=== PATIENT | male | born 1960 | race African-American/Black ===

== ENCOUNTER 2022-11-29 17:19 | Inpatient (IN) | payer OTHER ==
[2022-11-29 18:03] VITALS: BMI 36.6
[2022-11-29] MEDS ORDERED: cloNIDine HCL 0.1 MG TABLET PO ONE (18:19)
[2022-11-29] MEDS ORDERED: IBUPROFEN 400 MG TABLET (FP) PO PRN (18:27)
[2022-11-29] MEDS ORDERED: ONDANSETRON *ODT* 4 MG TABLET SL PRN (18:27)
[2022-11-29] MEDS ORDERED: MAGNESIUM HYDROX 2400MG/30ML ORAL SUSPENSION 30 ML CUP PO PRN (18:27)
[2022-11-29] MEDS ORDERED: BENZOCAINE/MENTHOL (CHLORASEPTIC ) LOZENGE MM PRN (18:27)
[2022-11-29] MEDS ORDERED: BISMUTH SUBSALICYLATE 524 MG/30 ML PO PRN (18:27)
[2022-11-29] MEDS ORDERED: guaiFENesin 200 MG/10 ML 10 ML UNIT-DOSE CUPS PO PRN (18:27)
[2022-11-29] MEDS ORDERED: POLYETHYLENE GLYCOL (HEALTHYLAX) 3350 17 GM PACKET PO PRN (18:27)
[2022-11-29] MEDS ORDERED: IBUPROFEN 600 MG TABLET (FP) PO PRN (18:27)
[2022-11-29] MEDS ORDERED: MAG HYDROX/AL HYDROX/SIMETH 30 ML UNIT-DOSE CUP PO PRN (18:27)
[2022-11-29] MEDS ORDERED: DICYCLOMINE HCL 10 MG CAPSULE PO PRN (18:27)
[2022-11-29] MEDS ORDERED: P-EPHED 60MG/TRIPROLIDI 2.5MG TABLET PO PRN (18:27)
[2022-11-29] MEDS ORDERED: ACETAMINOPHEN 325 MG TABLET (FP) PO PRN ×2 (18:27)
[2022-11-29] MEDS ORDERED: LOPERAMIDE HCL 2 MG CAPSULE PO PRN (18:27)
[2022-11-29] MEDS ORDERED: cloNIDine HCL 0.1 MG TABLET ONE (18:30)
[2022-11-29] MEDS: THIAMINE HCL 100 MG TABLET (FP) PO SCH (22:15)
[2022-11-29] MEDS: MELATONIN 5 MG TABLETS PO SCH (22:15)
[2022-11-29] MEDS: diazePAM 5 MG TABLET PO SCH (22:15)
[2022-11-29] MEDS: ROSUVASTATIN CA 5 MG TABLET PO SCH (23:02)
[2022-11-30] MEDS: diazePAM 5 MG TABLET PO SCH ×4 (06:21→22:30)
[2022-11-30] MEDS: amLODIPine BESYLATE 5 MG TABLET (FP) PO SCH (11:03)
[2022-11-30] MEDS: PRENATAL VITAMINS W/ FOLIC ACID TABLET (FP) PO SCH (11:03)
[2022-11-30] MEDS: ASPIRIN 81 MG CHEWABLE TABLETS PO SCH (11:03)
[2022-11-30 13:01] LABS: HEMATOCRIT 36.6 % (35.4-49); MCH 27.1 pg (25.7-33.7); MCHC 32.9 g/dl (32.0-35.9); MEAN CELL VOLUME 82.3 fl (80-96); MEAN PLT VOLUME 7.9 fl (7.5-11.1); PLATELET COUNT 391 10^3/uL (134-434); RBC 4.45 M/mm3 (4.00-5.60); RDW 14.3 % (11.9-15.9); WHITE BLOOD COUNT 5.7 K/mm3 (4.0-10.0)
[2022-11-30 13:09] LABS: BLOOD UREA NITROGEN 12.9 mg/dL (7-18)
[2022-11-30 13:11] LABS: CALCIUM 8.4 mg/dL (8.5-10.1)
[2022-11-30 13:12] LABS: ALBUMIN 3.2 g/dl (3.4-5.0); CREATININE 1.1 mg/dL (0.55-1.3)
[2022-11-30 13:13] LABS: BILIRUBIN,TOTAL 0.5 mg/dL (0.2-1); TOT PROT 6.8 g/dl (6.4-8.2)
[2022-11-30] MEDS: THIAMINE HCL 100 MG TABLET (FP) PO SCH (22:26)
[2022-11-30] MEDS: MELATONIN 5 MG TABLETS PO SCH (22:26)
[2022-11-30] MEDS: ROSUVASTATIN CA 5 MG TABLET PO SCH (23:32)
[2022-12-01] MEDS: diazePAM 5 MG TABLET PO SCH ×3 (05:54→22:44)
[2022-12-01] MEDS: METHOCARBAMOL 500 MG TABLET PO PRN ×2 (10:17→18:22)
[2022-12-01] MEDS: ASPIRIN 81 MG CHEWABLE TABLETS PO SCH (10:17)
[2022-12-01] MEDS: amLODIPine BESYLATE 5 MG TABLET (FP) PO SCH (10:17)
[2022-12-01] MEDS: PRENATAL VITAMINS W/ FOLIC ACID TABLET (FP) PO SCH (10:17)
[2022-12-01] MEDS: diazePAM 5 MG TABLET PO PRN ×2 (18:22→22:52)
[2022-12-01] MEDS ORDERED: cloNIDine HCL 0.1 MG TABLET PO ONE (18:27)
[2022-12-01] MEDS: THIAMINE HCL 100 MG TABLET (FP) PO SCH (22:43)
[2022-12-01] MEDS: MELATONIN 5 MG TABLETS PO SCH (22:43)
[2022-12-01] MEDS: ROSUVASTATIN CA 5 MG TABLET PO SCH (22:44)
[2022-12-02] MEDS: diazePAM 5 MG TABLET PO SCH ×2 (06:22→17:35)
[2022-12-02] MEDS: ASPIRIN 81 MG CHEWABLE TABLETS PO SCH (10:32)
[2022-12-02] MEDS: PRENATAL VITAMINS W/ FOLIC ACID TABLET (FP) PO SCH (10:32)
[2022-12-02] MEDS: amLODIPine BESYLATE 10 MG TABLET (FP) PO SCH (10:32)
[2022-12-02] MEDS: cloNIDine HCL 0.1 MG TABLET PO PRN ×2 (17:35→22:15)
[2022-12-02] MEDS: METHOCARBAMOL 500 MG TABLET PO PRN (17:35)
[2022-12-02] MEDS ORDERED: cloNIDine HCL 0.1 MG TABLET PO SCH (22:00)
[2022-12-02] MEDS: THIAMINE HCL 100 MG TABLET (FP) PO SCH (22:15)
[2022-12-02] MEDS: MELATONIN 5 MG TABLETS PO SCH (22:15)
[2022-12-02] MEDS: ROSUVASTATIN CA 5 MG TABLET PO SCH (22:15)
[2022-12-03] MEDS: cloNIDine HCL 0.1 MG TABLET PO PRN ×2 (04:19→16:02)
[2022-12-03] MEDS ORDERED: diazePAM 5 MG TABLET PO ONE (06:00)
[2022-12-03] MEDS: PRENATAL VITAMINS W/ FOLIC ACID TABLET (FP) PO SCH (10:14)
[2022-12-03] MEDS: ASPIRIN 81 MG CHEWABLE TABLETS PO SCH (10:15)
[2022-12-03] MEDS: amLODIPine BESYLATE 10 MG TABLET (FP) PO SCH (10:15)
[2022-12-03 16:58] VITALS: BP 142/90; PULSE 65; RESP 18; TEMP 97.5
[2022-12-03] MEDS ORDERED: LISINOPRIL 10 MG TABLET PO SCH (22:00)
== END 2022-12-03 19:51 | disposition other institution (70) | DRG 775 ==
LOC: YASAS 17:19 → Y6N 20:00
PROVIDERS: ADMIT Allergy & Immunology; ATTEND Surgery
PROC: HZ2ZZZZ Detoxification Services for Substance Abuse Treatment (ICD-10-PCS; principal; 2022-11-29)
DX: F10.230 Alcohol dependence with withdrawal, uncomplicated (principal); E78.5 Hyperlipidemia, unspecified; I10 Essential (primary) hypertension; E66.9 Obesity, unspecified; Z68.36 Body mass index [BMI] 36.0-36.9, adult; Z87.891 Personal history of nicotine dependence; Z87.09 Personal history of other diseases of the respiratory system
CPT/HCPCS: 36415; 80053; 85027; 86780; 87811; C9803-CS; U0003; U0005

== ENCOUNTER 2022-12-03 20:19 | Inpatient (IN) | payer OTHER ==
[~2022-12-03 20:19] MED LIST: BENZOCAINE/MENTHOL (CHLORASEPTIC ) LOZENGE MM PRN; IBUPROFEN 400 MG TABLET (FP) PO PRN; LOPERAMIDE HCL 2 MG CAPSULE PO PRN; MAG HYDROX/AL HYDROX/SIMETH 30 ML UNIT-DOSE CUP PO PRN; MAGNESIUM HYDROX 2400MG/30ML ORAL SUSPENSION 30 ML CUP PO PRN; NICOTINE 10 MG CARTRIDGE (INHALER) IH PRN; NICOTINE POLACRILEX 2 MG GUM BUC PRN; POLYETHYLENE GLYCOL (HEALTHYLAX) 3350 17 GM PACKET PO PRN
[2022-12-03] MEDS: ROSUVASTATIN CA 5 MG TABLET PO SCH (22:22)
[2022-12-03] MEDS: THIAMINE HCL 100 MG TABLET (FP) PO SCH (22:22)
[2022-12-03] MEDS: MELATONIN 5 MG TABLETS PO SCH (22:22)
[2022-12-04] MEDS: hydrOXYzine PAMOATE 25 MG CAPSULE (FP) PO PRN ×2 (04:12→22:28)
[2022-12-04] MEDS ORDERED: cloNIDine HCL 0.1 MG TABLET PO ONE (06:11)
[2022-12-04] MEDS: amLODIPine BESYLATE 5 MG TABLET (FP) PO SCH (10:29)
[2022-12-04] MEDS: NICOTINE 7 MG/24 HOURS TOPICAL PATCH TD SCH (10:30)
[2022-12-04] MEDS: PRENATAL VITAMINS W/ FOLIC ACID TABLET (FP) PO SCH (10:30)
[2022-12-04] MEDS: ASPIRIN 81 MG CHEWABLE TABLETS PO SCH (10:30)
[2022-12-04] MEDS: ACETAMINOPHEN 325 MG TABLET (FP) PO PRN (10:31)
[2022-12-04] MEDS: MELATONIN 5 MG TABLETS PO SCH (21:25)
[2022-12-04] MEDS: THIAMINE HCL 100 MG TABLET (FP) PO SCH (21:26)
[2022-12-04] MEDS: ROSUVASTATIN CA 5 MG TABLET PO SCH (21:26)
[2022-12-05] MEDS: ACETAMINOPHEN 325 MG TABLET (FP) PO PRN ×2 (06:47→17:55)
[2022-12-05] MEDS: hydrOXYzine PAMOATE 25 MG CAPSULE (FP) PO PRN (06:48)
[2022-12-05] MEDS: NICOTINE 7 MG/24 HOURS TOPICAL PATCH TD SCH (09:42)
[2022-12-05] MEDS: PRENATAL VITAMINS W/ FOLIC ACID TABLET (FP) PO SCH (09:42)
[2022-12-05] MEDS: ASPIRIN 81 MG CHEWABLE TABLETS PO SCH (09:42)
[2022-12-05] MEDS: amLODIPine BESYLATE 5 MG TABLET (FP) PO SCH (09:43)
[2022-12-05] MEDS: ROSUVASTATIN CA 5 MG TABLET PO SCH (21:22)
[2022-12-05] MEDS: MELATONIN 5 MG TABLETS PO SCH (21:22)
[2022-12-05] MEDS: THIAMINE HCL 100 MG TABLET (FP) PO SCH (21:22)
[2022-12-06] MEDS: ACETAMINOPHEN 325 MG TABLET (FP) PO PRN ×2 (08:51→21:18)
[2022-12-06] MEDS: PRENATAL VITAMINS W/ FOLIC ACID TABLET (FP) PO SCH (10:08)
[2022-12-06] MEDS: amLODIPine BESYLATE 5 MG TABLET (FP) PO SCH (10:08)
[2022-12-06] MEDS: ASPIRIN 81 MG CHEWABLE TABLETS PO SCH (10:08)
[2022-12-06] MEDS: NICOTINE 7 MG/24 HOURS TOPICAL PATCH TD SCH (10:08)
[2022-12-06] MEDS: BACLOFEN 10 MG TABLET (FP) PO SCH ×2 (15:41→21:18)
[2022-12-06] MEDS: LIDOCAINE 5% TOPICAL PATCH TP SCH (15:41)
[2022-12-06] MEDS: MELATONIN 5 MG TABLETS PO SCH (21:18)
[2022-12-06] MEDS: ROSUVASTATIN CA 5 MG TABLET PO SCH (21:18)
[2022-12-06] MEDS: THIAMINE HCL 100 MG TABLET (FP) PO SCH (21:18)
[2022-12-06] MEDS: LIDOCAINE PATCH REMOVAL MC SCH (21:30)
[2022-12-07] MEDS: BACLOFEN 10 MG TABLET (FP) PO SCH ×3 (06:24→21:14)
[2022-12-07] MEDS: hydrOXYzine PAMOATE 25 MG CAPSULE (FP) PO PRN (06:24)
[2022-12-07] MEDS: ACETAMINOPHEN 325 MG TABLET (FP) PO PRN (06:25)
[2022-12-07] MEDS ORDERED: PATIENT'S OWN MEDICATION (NON-FORMULARY) (Dorzolamide Hcl/Timolol Maleat [Cosopt Eye Drops OU SCH (10:00)
[2022-12-07] MEDS: amLODIPine BESYLATE 5 MG TABLET (FP) PO SCH (10:05)
[2022-12-07] MEDS: NICOTINE 7 MG/24 HOURS TOPICAL PATCH TD SCH (10:05)
[2022-12-07] MEDS: PRENATAL VITAMINS W/ FOLIC ACID TABLET (FP) PO SCH (10:06)
[2022-12-07] MEDS: LIDOCAINE 5% TOPICAL PATCH TP SCH (10:06)
[2022-12-07] MEDS: ASPIRIN 81 MG CHEWABLE TABLETS PO SCH (10:06)
[2022-12-07] MEDS: LOSARTAN POTASSIUM 50 MG TABLET PO SCH (10:30)
[2022-12-07] MEDS: DORZOLAMIDE 2% HCL OPHTHALMIC SOLUTION 10 ML BOTTLE OU SCH ×2 (10:31→21:15)
[2022-12-07] MEDS: TIMOLOL 0.5% OPHTHALMIC SOL 5 ML BOTTLE OU SCH ×2 (12:21→21:15)
[2022-12-07] MEDS: BRIMONIDINE TARTRATE 0.2% OPHTHALMIC 5 ML BOTTLE OU SCH ×2 (14:08→21:15)
[2022-12-07] MEDS: ROSUVASTATIN CA 5 MG TABLET PO SCH (21:14)
[2022-12-07] MEDS: THIAMINE HCL 100 MG TABLET (FP) PO SCH (21:14)
[2022-12-07] MEDS: LIDOCAINE PATCH REMOVAL MC SCH (21:15)
[2022-12-07] MEDS: MELATONIN 5 MG TABLETS PO SCH (21:15)
[2022-12-07] MEDS ORDERED: cloNIDine HCL 0.1 MG TABLET PO ONE (21:31)
[2022-12-08] MEDS: BRIMONIDINE TARTRATE 0.2% OPHTHALMIC 5 ML BOTTLE OU SCH ×3 (06:48→21:41)
[2022-12-08] MEDS: BACLOFEN 10 MG TABLET (FP) PO SCH ×3 (06:49→21:39)
[2022-12-08] MEDS: amLODIPine BESYLATE 5 MG TABLET (FP) PO SCH (10:15)
[2022-12-08] MEDS: LOSARTAN POTASSIUM 50 MG TABLET PO SCH (10:15)
[2022-12-08] MEDS: LIDOCAINE 5% TOPICAL PATCH TP SCH (10:15)
[2022-12-08] MEDS: NICOTINE 7 MG/24 HOURS TOPICAL PATCH TD SCH (10:15)
[2022-12-08] MEDS: ASPIRIN 81 MG CHEWABLE TABLETS PO SCH (10:15)
[2022-12-08] MEDS: PRENATAL VITAMINS W/ FOLIC ACID TABLET (FP) PO SCH (10:15)
[2022-12-08] MEDS: DORZOLAMIDE 2% HCL OPHTHALMIC SOLUTION 10 ML BOTTLE OU SCH ×2 (10:17→21:51)
[2022-12-08] MEDS: TIMOLOL 0.5% OPHTHALMIC SOL 5 ML BOTTLE OU SCH ×2 (10:17→21:40)
[2022-12-08] MEDS: ROSUVASTATIN CA 5 MG TABLET PO SCH (21:39)
[2022-12-08] MEDS: MELATONIN 5 MG TABLETS PO SCH (21:39)
[2022-12-08] MEDS: THIAMINE HCL 100 MG TABLET (FP) PO SCH (21:39)
[2022-12-08] MEDS: LIDOCAINE PATCH REMOVAL MC SCH (21:41)
[2022-12-09] MEDS: ACETAMINOPHEN 325 MG TABLET (FP) PO PRN ×2 (04:30→12:10)
[2022-12-09] MEDS: BACLOFEN 10 MG TABLET (FP) PO SCH ×3 (06:26→21:04)
[2022-12-09] MEDS: BRIMONIDINE TARTRATE 0.2% OPHTHALMIC 5 ML BOTTLE OU SCH ×3 (06:27→21:04)
[2022-12-09] MEDS: amLODIPine BESYLATE 5 MG TABLET (FP) PO SCH (09:11)
[2022-12-09] MEDS: PRENATAL VITAMINS W/ FOLIC ACID TABLET (FP) PO SCH (09:11)
[2022-12-09] MEDS: ASPIRIN 81 MG CHEWABLE TABLETS PO SCH (09:11)
[2022-12-09] MEDS: LOSARTAN POTASSIUM 50 MG TABLET PO SCH (09:11)
[2022-12-09] MEDS: LIDOCAINE 5% TOPICAL PATCH TP SCH (09:11)
[2022-12-09] MEDS: NICOTINE 7 MG/24 HOURS TOPICAL PATCH TD SCH (09:12)
[2022-12-09] MEDS: TIMOLOL 0.5% OPHTHALMIC SOL 5 ML BOTTLE OU SCH ×2 (10:24→21:05)
[2022-12-09] MEDS: DORZOLAMIDE 2% HCL OPHTHALMIC SOLUTION 10 ML BOTTLE OU SCH ×2 (10:25→21:05)
[2022-12-09] MEDS: hydrOXYzine PAMOATE 25 MG CAPSULE (FP) PO PRN ×2 (12:58→21:04)
[2022-12-09] MEDS: HYDROCHLOROTHIAZIDE 12.5 MG CAPSULE (FP) PO SCH (13:23)
[2022-12-09] MEDS: ROSUVASTATIN CA 5 MG TABLET PO SCH (21:04)
[2022-12-09] MEDS: MELATONIN 5 MG TABLETS PO SCH (21:04)
[2022-12-09] MEDS: LIDOCAINE PATCH REMOVAL MC SCH (21:04)
[2022-12-09] MEDS: THIAMINE HCL 100 MG TABLET (FP) PO SCH (21:05)
[2022-12-10] MEDS: BACLOFEN 10 MG TABLET (FP) PO SCH ×3 (06:18→21:07)
[2022-12-10] MEDS: BRIMONIDINE TARTRATE 0.2% OPHTHALMIC 5 ML BOTTLE OU SCH ×3 (06:19→21:09)
[2022-12-10] MEDS ORDERED: cloNIDine HCL 0.1 MG TABLET PO ONE (07:29)
[2022-12-10] MEDS: TIMOLOL 0.5% OPHTHALMIC SOL 5 ML BOTTLE OU SCH ×2 (10:15→21:09)
[2022-12-10] MEDS: amLODIPine BESYLATE 5 MG TABLET (FP) PO SCH (10:16)
[2022-12-10] MEDS: NICOTINE 7 MG/24 HOURS TOPICAL PATCH TD SCH (10:16)
[2022-12-10] MEDS: DORZOLAMIDE 2% HCL OPHTHALMIC SOLUTION 10 ML BOTTLE OU SCH ×2 (10:16→21:09)
[2022-12-10] MEDS: HYDROCHLOROTHIAZIDE 12.5 MG CAPSULE (FP) PO SCH (10:16)
[2022-12-10] MEDS: LOSARTAN POTASSIUM 50 MG TABLET PO SCH (10:16)
[2022-12-10] MEDS: ASPIRIN 81 MG CHEWABLE TABLETS PO SCH (10:16)
[2022-12-10] MEDS: PRENATAL VITAMINS W/ FOLIC ACID TABLET (FP) PO SCH (10:16)
[2022-12-10] MEDS: LIDOCAINE 5% TOPICAL PATCH TP SCH (10:16)
[2022-12-10] MEDS: ROSUVASTATIN CA 5 MG TABLET PO SCH (21:07)
[2022-12-10] MEDS: THIAMINE HCL 100 MG TABLET (FP) PO SCH (21:07)
[2022-12-10] MEDS: MELATONIN 5 MG TABLETS PO SCH (21:07)
[2022-12-10] MEDS: LIDOCAINE PATCH REMOVAL MC SCH (21:09)
[2022-12-11] MEDS: BACLOFEN 10 MG TABLET (FP) PO SCH ×3 (06:27→21:37)
[2022-12-11] MEDS: BRIMONIDINE TARTRATE 0.2% OPHTHALMIC 5 ML BOTTLE OU SCH ×3 (06:28→21:37)
[2022-12-11] MEDS: ASPIRIN 81 MG CHEWABLE TABLETS PO SCH (09:48)
[2022-12-11] MEDS: NICOTINE 7 MG/24 HOURS TOPICAL PATCH TD SCH (09:49)
[2022-12-11] MEDS: LIDOCAINE 5% TOPICAL PATCH TP SCH (09:49)
[2022-12-11] MEDS: HYDROCHLOROTHIAZIDE 12.5 MG CAPSULE (FP) PO SCH (09:49)
[2022-12-11] MEDS: amLODIPine BESYLATE 5 MG TABLET (FP) PO SCH (09:49)
[2022-12-11] MEDS: LOSARTAN POTASSIUM 50 MG TABLET PO SCH (09:49)
[2022-12-11] MEDS: PRENATAL VITAMINS W/ FOLIC ACID TABLET (FP) PO SCH (09:49)
[2022-12-11] MEDS: TIMOLOL 0.5% OPHTHALMIC SOL 5 ML BOTTLE OU SCH ×2 (09:50→21:38)
[2022-12-11] MEDS: DORZOLAMIDE 2% HCL OPHTHALMIC SOLUTION 10 ML BOTTLE OU SCH ×2 (09:50→21:38)
[2022-12-11] MEDS: LIDOCAINE PATCH REMOVAL MC SCH (21:37)
[2022-12-11] MEDS: ROSUVASTATIN CA 5 MG TABLET PO SCH (21:37)
[2022-12-11] MEDS: THIAMINE HCL 100 MG TABLET (FP) PO SCH (21:37)
[2022-12-11] MEDS: MELATONIN 5 MG TABLETS PO SCH (21:37)
[2022-12-12] MEDS: BACLOFEN 10 MG TABLET (FP) PO SCH ×3 (06:20→21:11)
[2022-12-12] MEDS: BRIMONIDINE TARTRATE 0.2% OPHTHALMIC 5 ML BOTTLE OU SCH ×3 (06:21→21:12)
[2022-12-12] MEDS: LIDOCAINE 5% TOPICAL PATCH TP SCH (09:43)
[2022-12-12] MEDS: HYDROCHLOROTHIAZIDE 12.5 MG CAPSULE (FP) PO SCH (09:44)
[2022-12-12] MEDS: amLODIPine BESYLATE 5 MG TABLET (FP) PO SCH (09:44)
[2022-12-12] MEDS: LOSARTAN POTASSIUM 50 MG TABLET PO SCH (09:44)
[2022-12-12] MEDS: PRENATAL VITAMINS W/ FOLIC ACID TABLET (FP) PO SCH (09:44)
[2022-12-12] MEDS: NICOTINE 7 MG/24 HOURS TOPICAL PATCH TD SCH (09:44)
[2022-12-12] MEDS: ASPIRIN 81 MG CHEWABLE TABLETS PO SCH (09:44)
[2022-12-12] MEDS: DORZOLAMIDE 2% HCL OPHTHALMIC SOLUTION 10 ML BOTTLE OU SCH ×2 (09:46→21:12)
[2022-12-12] MEDS: TIMOLOL 0.5% OPHTHALMIC SOL 5 ML BOTTLE OU SCH ×2 (09:47→21:12)
[2022-12-12] MEDS: LIDOCAINE PATCH REMOVAL MC SCH (21:11)
[2022-12-12] MEDS: THIAMINE HCL 100 MG TABLET (FP) PO SCH (21:11)
[2022-12-12] MEDS: ROSUVASTATIN CA 5 MG TABLET PO SCH (21:11)
[2022-12-12] MEDS: MELATONIN 5 MG TABLETS PO SCH (21:12)
[2022-12-13] MEDS: BACLOFEN 10 MG TABLET (FP) PO SCH ×4 (06:48→21:36)
[2022-12-13] MEDS: BRIMONIDINE TARTRATE 0.2% OPHTHALMIC 5 ML BOTTLE OU SCH ×4 (06:48→21:36)
[2022-12-13] MEDS: HYDROCHLOROTHIAZIDE 12.5 MG CAPSULE (FP) PO SCH (10:10)
[2022-12-13] MEDS: ASPIRIN 81 MG CHEWABLE TABLETS PO SCH (10:10)
[2022-12-13] MEDS: PRENATAL VITAMINS W/ FOLIC ACID TABLET (FP) PO SCH (10:10)
[2022-12-13] MEDS: NICOTINE 7 MG/24 HOURS TOPICAL PATCH TD SCH (10:11)
[2022-12-13] MEDS: LOSARTAN POTASSIUM 50 MG TABLET PO SCH (10:11)
[2022-12-13] MEDS: amLODIPine BESYLATE 5 MG TABLET (FP) PO SCH (10:11)
[2022-12-13] MEDS: LIDOCAINE 5% TOPICAL PATCH TP SCH (10:13)
[2022-12-13] MEDS: TIMOLOL 0.5% OPHTHALMIC SOL 5 ML BOTTLE OU SCH ×2 (10:13→21:37)
[2022-12-13] MEDS: DORZOLAMIDE 2% HCL OPHTHALMIC SOLUTION 10 ML BOTTLE OU SCH ×2 (10:13→21:37)
[2022-12-13] MEDS ORDERED: NICOTINE 7 MG/24 HOURS TOPICAL PATCH TD PRN (16:46)
[2022-12-13] MEDS: ROSUVASTATIN CA 5 MG TABLET PO SCH (21:36)
[2022-12-13] MEDS: LIDOCAINE PATCH REMOVAL MC SCH (21:36)
[2022-12-13] MEDS: THIAMINE HCL 100 MG TABLET (FP) PO SCH (21:37)
[2022-12-13] MEDS: MELATONIN 5 MG TABLETS PO SCH (21:37)
[2022-12-14] MEDS: BRIMONIDINE TARTRATE 0.2% OPHTHALMIC 5 ML BOTTLE OU SCH ×3 (06:04→21:23)
[2022-12-14] MEDS: BACLOFEN 10 MG TABLET (FP) PO SCH ×3 (06:04→21:23)
[2022-12-14] MEDS: HYDROCHLOROTHIAZIDE 12.5 MG CAPSULE (FP) PO SCH (09:32)
[2022-12-14] MEDS: ASPIRIN 81 MG CHEWABLE TABLETS PO SCH (09:32)
[2022-12-14] MEDS: PRENATAL VITAMINS W/ FOLIC ACID TABLET (FP) PO SCH (09:32)
[2022-12-14] MEDS: amLODIPine BESYLATE 5 MG TABLET (FP) PO SCH (09:33)
[2022-12-14] MEDS: LOSARTAN POTASSIUM 50 MG TABLET PO SCH (09:33)
[2022-12-14] MEDS: DORZOLAMIDE 2% HCL OPHTHALMIC SOLUTION 10 ML BOTTLE OU SCH ×2 (09:34→21:23)
[2022-12-14] MEDS: LIDOCAINE 5% TOPICAL PATCH TP SCH (09:34)
[2022-12-14] MEDS: TIMOLOL 0.5% OPHTHALMIC SOL 5 ML BOTTLE OU SCH ×2 (09:34→21:23)
[2022-12-14] MEDS: ROSUVASTATIN CA 5 MG TABLET PO SCH (21:23)
[2022-12-14] MEDS: LIDOCAINE PATCH REMOVAL MC SCH (21:23)
[2022-12-14] MEDS: MELATONIN 5 MG TABLETS PO SCH (21:23)
[2022-12-14] MEDS: THIAMINE HCL 100 MG TABLET (FP) PO SCH (21:23)
[2022-12-15] MEDS: BACLOFEN 10 MG TABLET (FP) PO SCH ×3 (06:19→21:37)
[2022-12-15] MEDS: BRIMONIDINE TARTRATE 0.2% OPHTHALMIC 5 ML BOTTLE OU SCH ×3 (06:20→21:38)
[2022-12-15] MEDS: PRENATAL VITAMINS W/ FOLIC ACID TABLET (FP) PO SCH (09:39)
[2022-12-15] MEDS: LOSARTAN POTASSIUM 50 MG TABLET PO SCH (09:39)
[2022-12-15] MEDS: amLODIPine BESYLATE 5 MG TABLET (FP) PO SCH (09:39)
[2022-12-15] MEDS: HYDROCHLOROTHIAZIDE 12.5 MG CAPSULE (FP) PO SCH (09:39)
[2022-12-15] MEDS: ASPIRIN 81 MG CHEWABLE TABLETS PO SCH (09:39)
[2022-12-15] MEDS: LIDOCAINE 5% TOPICAL PATCH TP SCH (09:42)
[2022-12-15] MEDS: TIMOLOL 0.5% OPHTHALMIC SOL 5 ML BOTTLE OU SCH ×2 (09:42→21:38)
[2022-12-15] MEDS: DORZOLAMIDE 2% HCL OPHTHALMIC SOLUTION 10 ML BOTTLE OU SCH ×2 (09:43→21:39)
[2022-12-15] MEDS: ROSUVASTATIN CA 5 MG TABLET PO SCH (21:37)
[2022-12-15] MEDS: MELATONIN 5 MG TABLETS PO SCH (21:37)
[2022-12-15] MEDS: LIDOCAINE PATCH REMOVAL MC SCH (21:38)
[2022-12-15] MEDS: THIAMINE HCL 100 MG TABLET (FP) PO SCH (21:38)
[2022-12-16] MEDS: BACLOFEN 10 MG TABLET (FP) PO SCH ×3 (06:17→21:24)
[2022-12-16] MEDS: BRIMONIDINE TARTRATE 0.2% OPHTHALMIC 5 ML BOTTLE OU SCH ×3 (06:18→21:26)
[2022-12-16] MEDS: LIDOCAINE 5% TOPICAL PATCH TP SCH (09:44)
[2022-12-16] MEDS: HYDROCHLOROTHIAZIDE 12.5 MG CAPSULE (FP) PO SCH (09:44)
[2022-12-16] MEDS: ASPIRIN 81 MG CHEWABLE TABLETS PO SCH (09:44)
[2022-12-16] MEDS: PRENATAL VITAMINS W/ FOLIC ACID TABLET (FP) PO SCH (09:44)
[2022-12-16] MEDS: LOSARTAN POTASSIUM 50 MG TABLET PO SCH (09:44)
[2022-12-16] MEDS: amLODIPine BESYLATE 5 MG TABLET (FP) PO SCH (09:44)
[2022-12-16] MEDS: TIMOLOL 0.5% OPHTHALMIC SOL 5 ML BOTTLE OU SCH ×2 (09:45→21:26)
[2022-12-16] MEDS: DORZOLAMIDE 2% HCL OPHTHALMIC SOLUTION 10 ML BOTTLE OU SCH ×2 (09:47→21:26)
[2022-12-16] MEDS: ROSUVASTATIN CA 5 MG TABLET PO SCH (21:25)
[2022-12-16] MEDS: MELATONIN 5 MG TABLETS PO SCH (21:26)
[2022-12-16] MEDS: LIDOCAINE PATCH REMOVAL MC SCH (21:26)
[2022-12-16] MEDS: THIAMINE HCL 100 MG TABLET (FP) PO SCH (21:26)
[2022-12-17] MEDS: BACLOFEN 10 MG TABLET (FP) PO SCH ×3 (06:15→22:06)
[2022-12-17] MEDS: BRIMONIDINE TARTRATE 0.2% OPHTHALMIC 5 ML BOTTLE OU SCH ×3 (06:16→22:06)
[2022-12-17] MEDS: ASPIRIN 81 MG CHEWABLE TABLETS PO SCH (09:56)
[2022-12-17] MEDS: LIDOCAINE 5% TOPICAL PATCH TP SCH (09:56)
[2022-12-17] MEDS: TIMOLOL 0.5% OPHTHALMIC SOL 5 ML BOTTLE OU SCH ×2 (09:56→22:06)
[2022-12-17] MEDS: LOSARTAN POTASSIUM 50 MG TABLET PO SCH (09:56)
[2022-12-17] MEDS: HYDROCHLOROTHIAZIDE 12.5 MG CAPSULE (FP) PO SCH (09:56)
[2022-12-17] MEDS: amLODIPine BESYLATE 5 MG TABLET (FP) PO SCH (09:56)
[2022-12-17] MEDS: PRENATAL VITAMINS W/ FOLIC ACID TABLET (FP) PO SCH (09:56)
[2022-12-17] MEDS: DORZOLAMIDE 2% HCL OPHTHALMIC SOLUTION 10 ML BOTTLE OU SCH ×2 (09:57→22:06)
[2022-12-17] MEDS: LIDOCAINE PATCH REMOVAL MC SCH (22:06)
[2022-12-17] MEDS: THIAMINE HCL 100 MG TABLET (FP) PO SCH (22:06)
[2022-12-17] MEDS: MELATONIN 5 MG TABLETS PO SCH (22:06)
[2022-12-17] MEDS: ROSUVASTATIN CA 5 MG TABLET PO SCH (22:06)
[2022-12-18] MEDS: BACLOFEN 10 MG TABLET (FP) PO SCH ×3 (06:09→21:22)
[2022-12-18] MEDS: BRIMONIDINE TARTRATE 0.2% OPHTHALMIC 5 ML BOTTLE OU SCH ×3 (06:11→21:23)
[2022-12-18] MEDS: PRENATAL VITAMINS W/ FOLIC ACID TABLET (FP) PO SCH (10:15)
[2022-12-18] MEDS: amLODIPine BESYLATE 5 MG TABLET (FP) PO SCH (10:15)
[2022-12-18] MEDS: HYDROCHLOROTHIAZIDE 12.5 MG CAPSULE (FP) PO SCH (10:16)
[2022-12-18] MEDS: ASPIRIN 81 MG CHEWABLE TABLETS PO SCH (10:16)
[2022-12-18] MEDS: LIDOCAINE 5% TOPICAL PATCH TP SCH (10:16)
[2022-12-18] MEDS: LOSARTAN POTASSIUM 50 MG TABLET PO SCH (10:16)
[2022-12-18] MEDS: TIMOLOL 0.5% OPHTHALMIC SOL 5 ML BOTTLE OU SCH ×2 (10:17→21:23)
[2022-12-18] MEDS: DORZOLAMIDE 2% HCL OPHTHALMIC SOLUTION 10 ML BOTTLE OU SCH ×2 (10:17→21:23)
[2022-12-18] MEDS: ROSUVASTATIN CA 5 MG TABLET PO SCH (21:22)
[2022-12-18] MEDS: THIAMINE HCL 100 MG TABLET (FP) PO SCH (21:22)
[2022-12-18] MEDS: LIDOCAINE PATCH REMOVAL MC SCH (21:23)
[2022-12-18] MEDS: MELATONIN 5 MG TABLETS PO SCH (21:23)
[2022-12-19] MEDS: BRIMONIDINE TARTRATE 0.2% OPHTHALMIC 5 ML BOTTLE OU SCH ×3 (06:42→21:26)
[2022-12-19] MEDS: BACLOFEN 10 MG TABLET (FP) PO SCH ×3 (06:42→21:24)
[2022-12-19] MEDS: PRENATAL VITAMINS W/ FOLIC ACID TABLET (FP) PO SCH (09:44)
[2022-12-19] MEDS: amLODIPine BESYLATE 5 MG TABLET (FP) PO SCH (09:44)
[2022-12-19] MEDS: LOSARTAN POTASSIUM 50 MG TABLET PO SCH (09:45)
[2022-12-19] MEDS: HYDROCHLOROTHIAZIDE 12.5 MG CAPSULE (FP) PO SCH (09:45)
[2022-12-19] MEDS: ASPIRIN 81 MG CHEWABLE TABLETS PO SCH (09:45)
[2022-12-19] MEDS: DORZOLAMIDE 2% HCL OPHTHALMIC SOLUTION 10 ML BOTTLE OU SCH ×2 (09:46→21:27)
[2022-12-19] MEDS: LIDOCAINE 5% TOPICAL PATCH TP SCH (09:47)
[2022-12-19] MEDS: TIMOLOL 0.5% OPHTHALMIC SOL 5 ML BOTTLE OU SCH ×2 (09:47→21:27)
[2022-12-19] MEDS: ACETAMINOPHEN 325 MG TABLET (FP) PO PRN (17:29)
[2022-12-19] MEDS: THIAMINE HCL 100 MG TABLET (FP) PO SCH (21:24)
[2022-12-19] MEDS: ROSUVASTATIN CA 5 MG TABLET PO SCH (21:24)
[2022-12-19] MEDS: LIDOCAINE PATCH REMOVAL MC SCH (21:26)
[2022-12-19] MEDS: MELATONIN 5 MG TABLETS PO SCH (21:26)
[2022-12-19] MEDS: guaiFENesin 200 MG/10 ML 10 ML UNIT-DOSE CUPS PO PRN (21:26)
[2022-12-20] MEDS: BACLOFEN 10 MG TABLET (FP) PO SCH ×3 (06:45→21:14)
[2022-12-20] MEDS: BRIMONIDINE TARTRATE 0.2% OPHTHALMIC 5 ML BOTTLE OU SCH ×3 (06:45→21:17)
[2022-12-20] MEDS: LOSARTAN POTASSIUM 50 MG TABLET PO SCH (10:09)
[2022-12-20] MEDS: amLODIPine BESYLATE 5 MG TABLET (FP) PO SCH (10:09)
[2022-12-20] MEDS: ASPIRIN 81 MG CHEWABLE TABLETS PO SCH (10:09)
[2022-12-20] MEDS: HYDROCHLOROTHIAZIDE 12.5 MG CAPSULE (FP) PO SCH (10:09)
[2022-12-20] MEDS: PRENATAL VITAMINS W/ FOLIC ACID TABLET (FP) PO SCH (10:09)
[2022-12-20] MEDS: LIDOCAINE 5% TOPICAL PATCH TP SCH (10:09)
[2022-12-20] MEDS: DORZOLAMIDE 2% HCL OPHTHALMIC SOLUTION 10 ML BOTTLE OU SCH ×2 (10:10→21:17)
[2022-12-20] MEDS: TIMOLOL 0.5% OPHTHALMIC SOL 5 ML BOTTLE OU SCH ×2 (10:10→21:17)
[2022-12-20] MEDS: ACETAMINOPHEN 325 MG TABLET (FP) PO PRN ×2 (10:12→21:16)
[2022-12-20] MEDS: guaiFENesin 200 MG/10 ML 10 ML UNIT-DOSE CUPS PO PRN (11:21)
[2022-12-20] MEDS ORDERED: HYDROCHLOROTHIAZIDE 12.5 MG CAPSULE (FP) PO SCH (13:32)
[2022-12-20] MEDS ORDERED: ALBUTEROL SO4 HFA INHALER IH PRN (13:33)
[2022-12-20] MEDS: ROSUVASTATIN CA 5 MG TABLET PO SCH (21:14)
[2022-12-20] MEDS: MELATONIN 5 MG TABLETS PO SCH (21:15)
[2022-12-20] MEDS: hydrOXYzine PAMOATE 25 MG CAPSULE (FP) PO PRN (21:15)
[2022-12-20] MEDS: LIDOCAINE PATCH REMOVAL MC SCH (21:17)
[2022-12-20] MEDS: THIAMINE HCL 100 MG TABLET (FP) PO SCH (21:17)
[2022-12-21] MEDS: BACLOFEN 10 MG TABLET (FP) PO SCH ×3 (06:22→21:11)
[2022-12-21] MEDS: BRIMONIDINE TARTRATE 0.2% OPHTHALMIC 5 ML BOTTLE OU SCH ×3 (06:23→21:11)
[2022-12-21] MEDS: ASPIRIN 81 MG CHEWABLE TABLETS PO SCH (10:07)
[2022-12-21] MEDS: LOSARTAN POTASSIUM 50 MG TABLET PO SCH (10:07)
[2022-12-21] MEDS: amLODIPine BESYLATE 5 MG TABLET (FP) PO SCH (10:07)
[2022-12-21] MEDS: TIMOLOL 0.5% OPHTHALMIC SOL 5 ML BOTTLE OU SCH ×2 (10:07→21:12)
[2022-12-21] MEDS: PRENATAL VITAMINS W/ FOLIC ACID TABLET (FP) PO SCH (10:07)
[2022-12-21] MEDS: LIDOCAINE 5% TOPICAL PATCH TP SCH (10:07)
[2022-12-21] MEDS: HYDROCHLOROTHIAZIDE 25 MG TABLET (FP) PO SCH (10:07)
[2022-12-21] MEDS: DORZOLAMIDE 2% HCL OPHTHALMIC SOLUTION 10 ML BOTTLE OU SCH ×2 (10:08→21:12)
[2022-12-21] MEDS: hydrOXYzine PAMOATE 25 MG CAPSULE (FP) PO PRN (11:47)
[2022-12-21] MEDS: ACETAMINOPHEN 325 MG TABLET (FP) PO PRN (11:47)
[2022-12-21] MEDS ORDERED: cloNIDine HCL 0.1 MG TABLET PO SCH (14:00)
[2022-12-21] MEDS: cloNIDine HCL 0.1 MG TABLET PO PRN (14:06)
[2022-12-21] MEDS: MELATONIN 5 MG TABLETS PO SCH (21:11)
[2022-12-21] MEDS: ROSUVASTATIN CA 5 MG TABLET PO SCH (21:11)
[2022-12-21] MEDS: LIDOCAINE PATCH REMOVAL MC SCH (21:11)
[2022-12-21] MEDS: THIAMINE HCL 100 MG TABLET (FP) PO SCH (21:12)
[2022-12-22] MEDS: BRIMONIDINE TARTRATE 0.2% OPHTHALMIC 5 ML BOTTLE OU SCH ×3 (06:15→21:44)
[2022-12-22] MEDS: BACLOFEN 10 MG TABLET (FP) PO SCH ×3 (06:15→21:45)
[2022-12-22] MEDS: amLODIPine BESYLATE 5 MG TABLET (FP) PO SCH (09:27)
[2022-12-22] MEDS: PRENATAL VITAMINS W/ FOLIC ACID TABLET (FP) PO SCH (09:27)
[2022-12-22] MEDS: LOSARTAN POTASSIUM 50 MG TABLET PO SCH (09:27)
[2022-12-22] MEDS: HYDROCHLOROTHIAZIDE 25 MG TABLET (FP) PO SCH (09:27)
[2022-12-22] MEDS: LIDOCAINE 5% TOPICAL PATCH TP SCH (09:28)
[2022-12-22] MEDS: TIMOLOL 0.5% OPHTHALMIC SOL 5 ML BOTTLE OU SCH ×2 (09:28→21:48)
[2022-12-22] MEDS: ASPIRIN 81 MG CHEWABLE TABLETS PO SCH (09:28)
[2022-12-22] MEDS: DORZOLAMIDE 2% HCL OPHTHALMIC SOLUTION 10 ML BOTTLE OU SCH ×2 (09:29→21:55)
[2022-12-22] MEDS: ROSUVASTATIN CA 5 MG TABLET PO SCH (21:45)
[2022-12-22] MEDS: THIAMINE HCL 100 MG TABLET (FP) PO SCH (21:47)
[2022-12-22] MEDS: MELATONIN 5 MG TABLETS PO SCH (21:48)
[2022-12-22] MEDS: LIDOCAINE PATCH REMOVAL MC SCH (21:50)
[2022-12-23] MEDS: BACLOFEN 10 MG TABLET (FP) PO SCH ×3 (06:28→21:40)
[2022-12-23] MEDS: BRIMONIDINE TARTRATE 0.2% OPHTHALMIC 5 ML BOTTLE OU SCH ×3 (06:28→21:41)
[2022-12-23] MEDS: DORZOLAMIDE 2% HCL OPHTHALMIC SOLUTION 10 ML BOTTLE OU SCH ×2 (10:00→21:40)
[2022-12-23] MEDS: TIMOLOL 0.5% OPHTHALMIC SOL 5 ML BOTTLE OU SCH ×2 (10:00→21:40)
[2022-12-23] MEDS: LOSARTAN POTASSIUM 50 MG TABLET PO SCH (10:35)
[2022-12-23] MEDS: amLODIPine BESYLATE 5 MG TABLET (FP) PO SCH (10:35)
[2022-12-23] MEDS: HYDROCHLOROTHIAZIDE 25 MG TABLET (FP) PO SCH (10:35)
[2022-12-23] MEDS: ASPIRIN 81 MG CHEWABLE TABLETS PO SCH (10:35)
[2022-12-23] MEDS: PRENATAL VITAMINS W/ FOLIC ACID TABLET (FP) PO SCH (10:35)
[2022-12-23] MEDS: LIDOCAINE 5% TOPICAL PATCH TP SCH (11:21)
[2022-12-23] MEDS: MELATONIN 5 MG TABLETS PO SCH (21:39)
[2022-12-23] MEDS: THIAMINE HCL 100 MG TABLET (FP) PO SCH (21:39)
[2022-12-23] MEDS: ROSUVASTATIN CA 5 MG TABLET PO SCH (21:41)
[2022-12-23] MEDS: LIDOCAINE PATCH REMOVAL MC SCH (21:41)
[2022-12-23] MEDS: hydrOXYzine PAMOATE 25 MG CAPSULE (FP) PO PRN (21:42)
[2022-12-23] MEDS: cloNIDine HCL 0.1 MG TABLET PO PRN (21:42)
[2022-12-24] MEDS: BACLOFEN 10 MG TABLET (FP) PO SCH ×3 (06:27→21:31)
[2022-12-24] MEDS: BRIMONIDINE TARTRATE 0.2% OPHTHALMIC 5 ML BOTTLE OU SCH ×3 (06:27→21:31)
[2022-12-24] MEDS: PRENATAL VITAMINS W/ FOLIC ACID TABLET (FP) PO SCH (09:55)
[2022-12-24] MEDS: HYDROCHLOROTHIAZIDE 25 MG TABLET (FP) PO SCH (09:56)
[2022-12-24] MEDS: ASPIRIN 81 MG CHEWABLE TABLETS PO SCH (09:56)
[2022-12-24] MEDS: TIMOLOL 0.5% OPHTHALMIC SOL 5 ML BOTTLE OU SCH ×2 (09:56→21:32)
[2022-12-24] MEDS: LOSARTAN POTASSIUM 50 MG TABLET PO SCH (09:56)
[2022-12-24] MEDS: amLODIPine BESYLATE 5 MG TABLET (FP) PO SCH (09:56)
[2022-12-24] MEDS: LIDOCAINE 5% TOPICAL PATCH TP SCH (09:56)
[2022-12-24] MEDS: DORZOLAMIDE 2% HCL OPHTHALMIC SOLUTION 10 ML BOTTLE OU SCH ×2 (09:57→21:32)
[2022-12-24] MEDS: LIDOCAINE PATCH REMOVAL MC SCH (21:31)
[2022-12-24] MEDS: ROSUVASTATIN CA 5 MG TABLET PO SCH (21:31)
[2022-12-24] MEDS: THIAMINE HCL 100 MG TABLET (FP) PO SCH (21:31)
[2022-12-24] MEDS: MELATONIN 5 MG TABLETS PO SCH (21:31)
[2022-12-25] MEDS: BRIMONIDINE TARTRATE 0.2% OPHTHALMIC 5 ML BOTTLE OU SCH ×3 (06:23→22:20)
[2022-12-25] MEDS: BACLOFEN 10 MG TABLET (FP) PO SCH ×3 (06:23→22:19)
[2022-12-25] MEDS: LOSARTAN POTASSIUM 50 MG TABLET PO SCH (09:33)
[2022-12-25] MEDS: PRENATAL VITAMINS W/ FOLIC ACID TABLET (FP) PO SCH (09:34)
[2022-12-25] MEDS: ASPIRIN 81 MG CHEWABLE TABLETS PO SCH (09:34)
[2022-12-25] MEDS: amLODIPine BESYLATE 5 MG TABLET (FP) PO SCH (09:34)
[2022-12-25] MEDS: HYDROCHLOROTHIAZIDE 25 MG TABLET (FP) PO SCH (09:34)
[2022-12-25] MEDS: LIDOCAINE 5% TOPICAL PATCH TP SCH (09:35)
[2022-12-25] MEDS: TIMOLOL 0.5% OPHTHALMIC SOL 5 ML BOTTLE OU SCH ×2 (09:37→22:20)
[2022-12-25] MEDS: DORZOLAMIDE 2% HCL OPHTHALMIC SOLUTION 10 ML BOTTLE OU SCH ×2 (09:37→22:22)
[2022-12-25] MEDS: hydrOXYzine PAMOATE 25 MG CAPSULE (FP) PO PRN (22:18)
[2022-12-25] MEDS: THIAMINE HCL 100 MG TABLET (FP) PO SCH (22:18)
[2022-12-25] MEDS: ROSUVASTATIN CA 5 MG TABLET PO SCH (22:19)
[2022-12-25] MEDS: LIDOCAINE PATCH REMOVAL MC SCH (22:20)
[2022-12-25] MEDS: MELATONIN 5 MG TABLETS PO SCH (22:20)
[2022-12-26] MEDS: BACLOFEN 10 MG TABLET (FP) PO SCH ×3 (06:27→21:20)
[2022-12-26] MEDS: BRIMONIDINE TARTRATE 0.2% OPHTHALMIC 5 ML BOTTLE OU SCH ×3 (06:28→21:20)
[2022-12-26] MEDS: amLODIPine BESYLATE 5 MG TABLET (FP) PO SCH (11:40)
[2022-12-26] MEDS: PRENATAL VITAMINS W/ FOLIC ACID TABLET (FP) PO SCH (11:40)
[2022-12-26] MEDS: TIMOLOL 0.5% OPHTHALMIC SOL 5 ML BOTTLE OU SCH ×2 (11:40→21:20)
[2022-12-26] MEDS: HYDROCHLOROTHIAZIDE 25 MG TABLET (FP) PO SCH (11:40)
[2022-12-26] MEDS: LIDOCAINE 5% TOPICAL PATCH TP SCH (11:40)
[2022-12-26] MEDS: ASPIRIN 81 MG CHEWABLE TABLETS PO SCH (11:40)
[2022-12-26] MEDS: LOSARTAN POTASSIUM 50 MG TABLET PO SCH (11:40)
[2022-12-26] MEDS: DORZOLAMIDE 2% HCL OPHTHALMIC SOLUTION 10 ML BOTTLE OU SCH ×2 (11:41→21:20)
[2022-12-26] MEDS: MELATONIN 5 MG TABLETS PO SCH ×2 (21:20→22:23)
[2022-12-26] MEDS: LIDOCAINE PATCH REMOVAL MC SCH (21:20)
[2022-12-26] MEDS: THIAMINE HCL 100 MG TABLET (FP) PO SCH (21:20)
[2022-12-26] MEDS: ROSUVASTATIN CA 5 MG TABLET PO SCH (21:20)
[2022-12-27] MEDS: BRIMONIDINE TARTRATE 0.2% OPHTHALMIC 5 ML BOTTLE OU SCH ×3 (06:15→21:25)
[2022-12-27] MEDS: BACLOFEN 10 MG TABLET (FP) PO SCH ×2 (06:15→13:22)
[2022-12-27] MEDS: PRENATAL VITAMINS W/ FOLIC ACID TABLET (FP) PO SCH (09:33)
[2022-12-27] MEDS: HYDROCHLOROTHIAZIDE 25 MG TABLET (FP) PO SCH (09:33)
[2022-12-27] MEDS: LIDOCAINE 5% TOPICAL PATCH TP SCH (09:33)
[2022-12-27] MEDS: amLODIPine BESYLATE 5 MG TABLET (FP) PO SCH (09:35)
[2022-12-27] MEDS: LOSARTAN POTASSIUM 50 MG TABLET PO SCH (09:36)
[2022-12-27] MEDS: ASPIRIN 81 MG CHEWABLE TABLETS PO SCH (09:36)
[2022-12-27] MEDS: DORZOLAMIDE 2% HCL OPHTHALMIC SOLUTION 10 ML BOTTLE OU SCH ×2 (09:37→21:25)
[2022-12-27] MEDS: TIMOLOL 0.5% OPHTHALMIC SOL 5 ML BOTTLE OU SCH ×2 (09:37→21:25)
[2022-12-27] MEDS ORDERED: cloNIDine HCL 0.1 MG TABLET PO PRN (10:11)
[2022-12-27] MEDS ORDERED: DOCUSATE SODIUM 100 MG CAPSULE (FP) PO PRN (10:12)
[2022-12-27] MEDS ORDERED: LACTULOSE 20 GM/30 ML UDC (FOR ORAL USE ONLY) PO PRN (10:13)
[2022-12-27] MEDS: BACLOFEN 10 MG TABLET (FP) PO PRN (21:23)
[2022-12-27] MEDS: ROSUVASTATIN CA 5 MG TABLET PO SCH (21:23)
[2022-12-27] MEDS: ACETAMINOPHEN 325 MG TABLET (FP) PO PRN (21:24)
[2022-12-27] MEDS: THIAMINE HCL 100 MG TABLET (FP) PO SCH (21:25)
[2022-12-27] MEDS: LIDOCAINE PATCH REMOVAL MC SCH (21:25)
[2022-12-27] MEDS: MELATONIN 5 MG TABLETS PO SCH (22:35)
[2022-12-28] MEDS: BRIMONIDINE TARTRATE 0.2% OPHTHALMIC 5 ML BOTTLE OU SCH ×3 (06:28→21:20)
[2022-12-28] MEDS: LOSARTAN POTASSIUM 50 MG TABLET PO SCH (10:12)
[2022-12-28] MEDS: amLODIPine BESYLATE 5 MG TABLET (FP) PO SCH (10:12)
[2022-12-28] MEDS: HYDROCHLOROTHIAZIDE 25 MG TABLET (FP) PO SCH (10:12)
[2022-12-28] MEDS: LIDOCAINE 5% TOPICAL PATCH TP SCH (10:12)
[2022-12-28] MEDS: TIMOLOL 0.5% OPHTHALMIC SOL 5 ML BOTTLE OU SCH ×2 (10:13→21:20)
[2022-12-28] MEDS: DORZOLAMIDE 2% HCL OPHTHALMIC SOLUTION 10 ML BOTTLE OU SCH ×2 (10:13→21:20)
[2022-12-28] MEDS: PRENATAL VITAMINS W/ FOLIC ACID TABLET (FP) PO SCH (10:15)
[2022-12-28] MEDS: ROSUVASTATIN CA 5 MG TABLET PO SCH (21:19)
[2022-12-28] MEDS: BACLOFEN 10 MG TABLET (FP) PO PRN (21:19)
[2022-12-28] MEDS: MELATONIN 5 MG TABLETS PO SCH (21:20)
[2022-12-28] MEDS: THIAMINE HCL 100 MG TABLET (FP) PO SCH (21:20)
[2022-12-28] MEDS: LIDOCAINE PATCH REMOVAL MC SCH (21:20)
[2022-12-29] MEDS: BRIMONIDINE TARTRATE 0.2% OPHTHALMIC 5 ML BOTTLE OU SCH ×3 (07:00→21:28)
[2022-12-29] MEDS: LIDOCAINE 5% TOPICAL PATCH TP SCH (09:59)
[2022-12-29] MEDS: PRENATAL VITAMINS W/ FOLIC ACID TABLET (FP) PO SCH (09:59)
[2022-12-29] MEDS: LOSARTAN POTASSIUM 50 MG TABLET PO SCH (10:00)
[2022-12-29] MEDS: HYDROCHLOROTHIAZIDE 25 MG TABLET (FP) PO SCH (10:00)
[2022-12-29] MEDS: amLODIPine BESYLATE 5 MG TABLET (FP) PO SCH (10:00)
[2022-12-29] MEDS: TIMOLOL 0.5% OPHTHALMIC SOL 5 ML BOTTLE OU SCH ×2 (10:02→21:29)
[2022-12-29] MEDS: DORZOLAMIDE 2% HCL OPHTHALMIC SOLUTION 10 ML BOTTLE OU SCH ×2 (10:02→21:29)
[2022-12-29] MEDS: ACETAMINOPHEN 325 MG TABLET (FP) PO PRN (10:41)
[2022-12-29] MEDS: ROSUVASTATIN CA 5 MG TABLET PO SCH (21:28)
[2022-12-29] MEDS: BACLOFEN 10 MG TABLET (FP) PO PRN (21:28)
[2022-12-29] MEDS: LIDOCAINE PATCH REMOVAL MC SCH (21:28)
[2022-12-29] MEDS: THIAMINE HCL 100 MG TABLET (FP) PO SCH (21:29)
[2022-12-29] MEDS: MELATONIN 5 MG TABLETS PO SCH (21:29)
[2022-12-30] MEDS: BRIMONIDINE TARTRATE 0.2% OPHTHALMIC 5 ML BOTTLE OU SCH ×3 (05:47→21:33)
[2022-12-30] MEDS: amLODIPine BESYLATE 5 MG TABLET (FP) PO SCH (10:19)
[2022-12-30] MEDS: LOSARTAN POTASSIUM 50 MG TABLET PO SCH (10:19)
[2022-12-30] MEDS: HYDROCHLOROTHIAZIDE 25 MG TABLET (FP) PO SCH (10:19)
[2022-12-30] MEDS: TIMOLOL 0.5% OPHTHALMIC SOL 5 ML BOTTLE OU SCH ×2 (10:20→21:33)
[2022-12-30] MEDS: PRENATAL VITAMINS W/ FOLIC ACID TABLET (FP) PO SCH (10:20)
[2022-12-30] MEDS: LIDOCAINE 5% TOPICAL PATCH TP SCH (10:20)
[2022-12-30] MEDS: DORZOLAMIDE 2% HCL OPHTHALMIC SOLUTION 10 ML BOTTLE OU SCH ×2 (10:20→21:33)
[2022-12-30] MEDS: MELATONIN 5 MG TABLETS PO SCH (21:32)
[2022-12-30] MEDS: ROSUVASTATIN CA 5 MG TABLET PO SCH (21:32)
[2022-12-30] MEDS: THIAMINE HCL 100 MG TABLET (FP) PO SCH (21:32)
[2022-12-30] MEDS: LIDOCAINE PATCH REMOVAL MC SCH (21:33)
[2022-12-31] MEDS: BRIMONIDINE TARTRATE 0.2% OPHTHALMIC 5 ML BOTTLE OU SCH ×3 (06:51→21:47)
[2022-12-31 07:13] VITALS: RESP 18
[2022-12-31] MEDS: LOSARTAN POTASSIUM 50 MG TABLET PO SCH (10:03)
[2022-12-31] MEDS: amLODIPine BESYLATE 5 MG TABLET (FP) PO SCH (10:03)
[2022-12-31] MEDS: HYDROCHLOROTHIAZIDE 25 MG TABLET (FP) PO SCH (10:03)
[2022-12-31] MEDS: TIMOLOL 0.5% OPHTHALMIC SOL 5 ML BOTTLE OU SCH ×2 (10:04→21:47)
[2022-12-31] MEDS: PRENATAL VITAMINS W/ FOLIC ACID TABLET (FP) PO SCH (10:04)
[2022-12-31] MEDS: LIDOCAINE 5% TOPICAL PATCH TP SCH (10:04)
[2022-12-31] MEDS: DORZOLAMIDE 2% HCL OPHTHALMIC SOLUTION 10 ML BOTTLE OU SCH ×2 (10:04→21:47)
[2022-12-31] MEDS: THIAMINE HCL 100 MG TABLET (FP) PO SCH (21:46)
[2022-12-31] MEDS: ROSUVASTATIN CA 5 MG TABLET PO SCH (21:46)
[2022-12-31] MEDS: MELATONIN 5 MG TABLETS PO SCH (21:46)
[2022-12-31] MEDS: LIDOCAINE PATCH REMOVAL MC SCH (21:47)
[2023-01-01] MEDS: BRIMONIDINE TARTRATE 0.2% OPHTHALMIC 5 ML BOTTLE OU SCH (06:48)
[2023-01-01 07:09] VITALS: TEMP 97.5
[2023-01-01 09:16] VITALS: BP 157/98; PULSE 69
[2023-01-01] MEDS: PRENATAL VITAMINS W/ FOLIC ACID TABLET (FP) PO SCH (09:32)
[2023-01-01] MEDS: HYDROCHLOROTHIAZIDE 25 MG TABLET (FP) PO SCH (09:32)
[2023-01-01] MEDS: LOSARTAN POTASSIUM 50 MG TABLET PO SCH (09:32)
[2023-01-01] MEDS: LIDOCAINE 5% TOPICAL PATCH TP SCH (09:33)
[2023-01-01] MEDS: amLODIPine BESYLATE 5 MG TABLET (FP) PO SCH (09:33)
[2023-01-01] MEDS: DORZOLAMIDE 2% HCL OPHTHALMIC SOLUTION 10 ML BOTTLE OU SCH (09:34)
[2023-01-01] MEDS: TIMOLOL 0.5% OPHTHALMIC SOL 5 ML BOTTLE OU SCH (09:34)
== END 2023-01-01 09:40 | disposition home or self-care (01) | DRG 772 ==
LOC: YASAS 20:19 → Y3W 20:22
PROVIDERS: ADMIT Allergy & Immunology; ATTEND Psychiatry & Neurology Pain Medicine
PROC: HZ42ZZZ Group Counseling for Substance Abuse Treatment, Cognitive-Behavioral (ICD-10-PCS; principal; 2022-12-03)
DX: F10.20 Alcohol dependence, uncomplicated (principal); F12.20 Cannabis dependence, uncomplicated; F10.282 Alcohol dependence with alcohol-induced sleep disorder; F10.24 Alcohol dependence with alcohol-induced mood disorder; F20.9 Schizophrenia, unspecified; E78.5 Hyperlipidemia, unspecified; I10 Essential (primary) hypertension; J45.909 Unspecified asthma, uncomplicated; H40.9 Unspecified glaucoma; K59.00 Constipation, unspecified; R04.0 Epistaxis; R60.0 Localized edema; Z62.810 Personal history of physical and sexual abuse in childhood; Z91.410 Personal history of adult physical and sexual abuse; Z87.891 Personal history of nicotine dependence
CPT/HCPCS: 36415; 71046-TC-FY; 86803; J0475